=== PATIENT | female | born 1975 | race African-American/Black ===

== ENCOUNTER → 2020-01-17 | Outpatient (CLI) | payer BC ==
--- NOTE | 2020-01-17 10:15 | XCELERA REPORT ---
[address] [address] Transthoracic Echocardiogram Report Name: ARISTEO SIDDIQI Age: 44 yrs Gender: Female : 1975 Patient Status: Outpatient Patient Location: RAD Study Date: 01/17/2020 07:03 AM Height: 69 in Weight: 185 lb BSA: 2.0 m2 Procedure: A complete two-dimensional transthoracic echocardiogram was performed (2D, M-mode, spectral and color flow Doppler). The study was technically adequate with some images being suboptimal in quality. Reason For Study: OBSTRUCTIVE HYPERTROPHIC CARDIOMYOPATHY Ordering Physician: GAMALIEL CORRALES Performed By: Mary Jane Walker Interpretation Summary The left ventricular ejection fraction is normal. LV diastolic function could not be adequately assessed, probably normal. There is normal left ventricular wall thickness. The left ventricle is grossly normal size. No regional wall motion abnormalities noted. The right ventricular systolic function is normal. The left atrial size is normal. The right atrium is normal. There is a trace amount of mitral regurgitation There is no mitral valve stenosis. No aortic regurgitation is present. There is no aortic valve stenosis There is a trace or physiologic amount of tricuspid regurgitation Right ventricular systolic pressure is at the upper limits of normal The aortic root is not well visualized but is probably normal size. The inferior vena cava was not well visualized There is no pericardial effusion. MMode/2D Measurements & Calculations RVDd: 1.7 cm LVIDd: 4.2 cm FS: 39.0 % Ao root diam: 2.5 cm IVSd: 0.81 cm LVIDs: 2.6 cm EDV(Teich): 79.8 ml Ao root area: 4.7 cm2 LVPWd: 0.85 cm ESV(Teich): 24.1 ml EF(Teich): 69.8 % LVOT diam: 2.0 cm LVOT area: 3.0 cm2 Doppler Measurements & Calculations MV E max tyler: MV dec slope: Ao V2 max: LV V1 max P.7 cm/sec 651.6 cm/sec2 161.8 cm/sec 6.8 mmHg MV A max tyler: MV dec time: 0.14 secAo max PG: LV V1 max: 66.3 cm/sec 10.5 mmHg 130.6 cm/sec MV E/A: 1.4 LIBORIO(V,D): 2.4 cm2 PA V2 max: TR max tyler: 130.1 cm/sec 192.9 cm/sec PA max P.8 mmHg TR max P.9 mmHg Left Ventricle The left ventricle is grossly normal size. There is normal left ventricular wall thickness. The left ventricular ejection fraction is normal. LV diastolic function could not be adequately assessed. No regional wall motion abnormalities noted. Right Ventricle The right ventricle is normal in size, thickness and function. There is normal right ventricular wall thickness. The right ventricular systolic function is normal. Atria The right atrium is normal. The left atrial size is normal. Interarterial septum not well visualized and not well dopplered. Cannot comment on ASD/PFO presence. Mitral Valve The mitral valve is grossly normal. There is no mitral valve stenosis. There is a trace amount of mitral regurgitation. Aortic Valve The aortic valve is grossly normal. There is no aortic valve stenosis. No aortic regurgitation is present. Tricuspid Valve The tricuspid valve is not well visualized, but is grossly normal. There is no tricuspid stenosis. There is a trace or physiologic amount of tricuspid regurgitation. Right ventricular systolic pressure is at the upper limits of normal. Pulmonic Valve The pulmonic valve is not well visualized. Great Vessels The aortic root is not well visualized but is probably normal size. The inferior vena cava was not well visualized. Effusions There is no pericardial effusion. : GAMALIEL CORRALES Shyamal
== END ==
LOC: RAD 07:50
PROVIDERS: ATTEND Internal Medicine
DX: I42.1 Obstructive hypertrophic cardiomyopathy (principal)
CPT/HCPCS: 93306